=== PATIENT | male | born 1950 | race Caucasian/White ===

== ENCOUNTER → 2016-08-06 | Outpatient (CLI) | payer MEDICARE, OTHER ==
--- NOTE | 2016-08-06 16:30 | RADRPT ---
PROCEDURE: XR bilateral knees. CLINICAL INDICATION: Knee pain TECHNIQUE: AP weightbearing, PA weightbearing, lateral weightbearing and sunrise views of each kne e are available for review. COMPARISON: None available FINDINGS: Right knee: There is mild osteoarthrosis involving the right patellofemoral compartment .This is associated with joint space narrowing, subchondral sclerosis and osteophytosis. Left knee: There is moderate osteoarthrosis involving the left medial tibial femoral compartment, lateral tibi al femoral compartment and patellofemoral compartment. This is associated with joint space narrowing , subchondral sclerosis and osteophytosis. There is otherwise normal mineralization, architecture and alignment. No fractures are identified. No osseous lesions are identified. The soft tissues are unremarkable. IMPRESSION: Mild osteoarthrosis involving the right patellofemoral compartment Moderate osteoarthrosis involving the left medial tibial femoral compartment, lateral tibial femoral compartment and patellofemoral compartment. RPTAT: [facility] .Abhijeet Hobbs MD, Date Time Electronically viewed and signed by .Abhijeet Hobbs MD, on 08/06/2016 16:30 .B/
== END | disposition home or self-care (01) ==
LOC: HKI 15:09
PROVIDERS: ATTEND Orthopaedic Surgery
DX: M17.0 Bilateral primary osteoarthritis of knee (principal); M25.562 Pain in left knee
CPT/HCPCS: 73564; G0463